=== PATIENT | female | born 2000 | race Caucasian/White ===

== ENCOUNTER 2018-06-29 20:01 | Emergency (ER) | payer OTHER ==
[2018-06-29] MEDS ORDERED: HYDROCODONE/ACETAMINOPHEN 5-325 MG (6 TAB/ER DISP) PO PRN (21:08)
[2018-06-29] MEDS ORDERED: SULFAMETHOXAZOLE/TRIMETHOPRIM 800-160 MG TABLET PO ONE (21:08)
[2018-06-29] MEDS ORDERED: CEPHALEXIN 500 MG CAPSULE PO ONE (21:08)
--- NOTE | 2018-06-29 21:11 | ER Document Report ---
HPI - HPI Patient complains to provider of: Abscess Time Seen by Provider: 06/29/18 20:45 Pain Level: 4 Context: Patient is a 18-year-old female presents to the emergency department for an abscess to her tailbone region. Patient states she noticed some redness and swelling to the tailbone region 6 days ago. States she went to urgent care 4 days ago and was prescribed prednisone and Flexeril. Patient states she was not prescribed any antibiotics at that time. Patient states today she noticed that the area of redness had discharge and increased pain which is why she presents to the emergency room. Patient has no history of pilonidal cyst or MRSA infections in the past. Past medical history: None Medications: None Allergies: None Past Medical History - General Information source: Patient - Social History Smoking Status: Never Smoker Chew tobacco use (# tins/day): No Frequency of alcohol use: Occasional Drug Abuse: None Family History: Reviewed & Not Pertinent Patient has suicidal ideation: No Patient has homicidal ideation: No Renal/ Medical History: Denies: Hx Peritoneal Dialysis Vertical Provider Document - CONSTITUTIONAL Agree With Documented VS: Yes Notes: GENERAL: Alert, interacts well. No acute distress. HEAD: Normocephalic, atraumatic. EYES: Pupils equal, round, and reactive to light. Extraocular movements intact. ENT: Oral mucosa moist, tongue midline. NECK: Full range of motion. Supple. Trachea midline. LUNGS: Clear to auscultation bilaterally, no wheezes, rales, or rhonchi. No respiratory distress. HEART: Regular rate and rhythm. No murmur ABDOMEN: Soft, non-tender. Non-distended. Bowel sounds present in all 4 quadrants. EXTREMITIES: Moves all 4 extremities spontaneously. No edema, normal radial and dorsalis pedis pulses bilaterally. No cyanosis. BACK: no cervical, thoracic, lumbar midline tenderness. No saddle anesthesia, normal distal neurovascular exam. Patient has a 3 cm x 3 cm area of fluctuance in the hazel cleft. There is also an area of 5 cm x 5 cm total surrounding erythema. NEUROLOGICAL: Alert and oriented x3. Normal speech. cranial nerves II through XII grossly intact. PSYCH: Normal affect, normal mood. SKIN: Warm, dry, normal turgor. No rashes or lesions noted. - INFECTION CONTROL TRAVEL OUTSIDE OF THE [place] IN LAST 30 DAYS: No Course - Re-evaluation Re-evalutation: 06/29/18 21:15 What appears to be a pilonidal cyst was already draining in 2 places. I applied pressure to both areas and got a copious amount of purulent discharge. I then flushed the area with copious amounts of fluid. Patient tolerated procedure well. Patient was given Motrin in the emergency room but is driving herself so will be given a home [place] to go. Discussed with patient need for antibiotics due to surrounding cellulitis need to follow-up with surgery. Patient voices understanding. Patient is non-tachycardic and afebrile at this time. - Vital Signs Vital signs: Temp Pulse Resp BP Pulse Ox 99.1 F 99 16 141/91 H 99 06/29/18 20:04 06/29/18 20:04 06/29/18 20:04 06/29/18 20:04 06/29/18 20:04 Discharge - Discharge Clinical Impression: Pilonidal abscess of hazel cleft Condition: Stable Disposition: HOME, SELF-CARE Instructions: Abscess ([facility]), Cephalexin ([facility]), Post Incision and Drainage, Trimethoprim-Sulfa ([facility]) Additional Instructions: As we discussed you have been seen and treated in the emergency department for a pilonidal abscess. You need to follow-up in surgery because sometimes they need to remove the tract with which this infection stems from. Please use sitz bath at home, you can buy this in any store. Please take medications as prescribed. Prescriptions: Cephalexin Monohydrate [Keflex 500 mg Capsule] 500 mg PO BID 7 Days #14 capsule Sulfamethoxazole/Trimethoprim [Bactrim Ds Tablet] 1 each PO BID 7 Days #14 tablet Referrals: OLAYINKA MOSLEY MD [[employer]] - Follow up as needed
[2018-06-29 21:49] VITALS: BP 135/87
== END 2018-06-29 21:48 | disposition home or self-care (01) ==
LOC: ER 20:01
DX: L05.01 Pilonidal cyst with abscess (principal); L03.90 Cellulitis, unspecified
CPT/HCPCS: 99282